=== PATIENT | female | born 2005 | race Two or more races ===

== ENCOUNTER 2024-11-29 13:30 | Emergency (ER) | payer SELFPAY ==
[~2024-11-29] VITALS: Ht 172.7 cm; Wt 75.0 kg
[2024-11-29 13:44] VITALS: O2SAT 97
[2024-11-29 16:37] VITALS: BP 113/73; PULSE 81; RESP 17; TEMP 36.5; O2SAT 99
== END 2024-11-29 16:39 | disposition home or self-care (01) ==
LOC: ER 13:30
DX: B07.0 Plantar wart (principal)
CPT/HCPCS: 99282